=== PATIENT | female | born 1965 | race Caucasian/White ===

== ENCOUNTER 2016-08-19 06:10 | Day surgery (SDC) | payer BC ==
--- NOTE | ~2016-08-19 | EGD ---
EGD REPORT [facility] [address] [address] NAME: NOLVIA RUSSELL : [birth year] STATUS : [facility]#: [id number] AGE: 51 ADM/REG DATE : 08/19/16 MR#: [id number] REPORT SERV DATE: 08/19/16 DICTATED BY: BERNABE PRIETO DATE: 08/19/16 REPORT STATUS : Draft [facility]ANSCRIBED BY: [facility] DATE: 08/19/16 Endoscopy Center Patient Name: Nolvia Russell Date of : 1965 Attending MD: BERNABE PRIETO MD Procedure Date No Time: 08/19/2016 Procedure: Upper GI endoscopy Indications: Diarrhea, Nausea with vomiting Referring MD: MARISABEL CHAMBERS Medicines: as per anesthesia Complications: No immediate complications. Procedure: Pre-Anesthesia Assessment: - ASA Grade Assessment: II - A patient with mild systemic disease. After obtaining informed consent, the endoscope was passed under direct vision. Throughout the procedure, the patient's blood pressure, pulse, and oxygen saturations were monitored continuously. The GIF [id number] was introduced through the mouth, and advanced to the third part of duodenum. The upper GI endoscopy was accomplished without difficulty. The patient tolerated the procedure. Findings: The examined esophagus was normal. The entire examined stomach was normal. The cardia and gastric fundus were normal on retroflexion. The examined duodenum was normal. Biopsies were taken with a cold forceps for histology. Impression: - Normal esophagus. - Normal stomach. - Normal examined duodenum. Biopsied. Recommendation: - Await pathology results. Procedure Code(s): --- Professional --- 43020, Esophagogastroduodenoscopy, flexible, transoral; with biopsy, single or multiple Diagnosis Code(s): --- Professional --- R19.7, Diarrhea, unspecified R11.2, Nausea with vomiting, unspecified EGD REPORT [facility] [address] [place] [address] NAME: NOLVIA RUSSELL : [birth year] STATUS : [facility]#: [id number] AGE: 51 ADM/REG DATE : 08/19/16 MR#: [id number] REPORT SERV DATE: 08/19/16 DICTATED BY: BERNABE PRIETO. DATE: 08/19/16 REPORT STATUS : Draft TRANSCRIBED BY: [employer] DATE: 08/19/16 CPT copyright 2013 [employer]. All rights reserved. The codes documented in this report are preliminary and upon corporate sales trainer review may be revised to meet current compliance requirements. BERNABE PRIETO MD 08/19/2016 7:57 AM This report has been signed electronically. Number of Addenda: 0 Note Initiated On: 08/19/2016 7:15 AM Scope Withdrawal Time 0 hours 0 minutes 0 seconds [address] [facility] [place] [address]
--- NOTE | ~2016-08-19 | EGD ---
EGD REPORT [facility] [address] [address] NAME: NOLVIA RUSSELL : [birth year] STATUS : [facility]#: [id number] AGE: 51 ADM/REG DATE : 08/19/16 MR#: [id number] REPORT SERV DATE: 08/19/16 DICTATED BY: BERNABE PRIETO DATE: 08/19/16 REPORT STATUS : Draft TRANSCRIBED BY: [facility] DATE: 08/19/16 Endoscopy Center Patient Name: Nolvia Russell Date of : 1965 Attending MD: BERNABE PRIETO MD Procedure Date No Time: 08/19/2016 Procedure: Colonoscopy Indications: Abdominal pain in the left lower quadrant, Abdominal pain in the right lower quadrant, Clinically significant diarrhea of unexplained origin Referring MD: MARISABEL CHAMBERS Medicines: as per anesthesia Complications: No immediate complications. Procedure: Pre-Anesthesia Assessment: - ASA Grade Assessment: II - A patient with mild systemic disease. After I obtained informed consent, the scope was passed under direct vision. Throughout the procedure, the patient's blood pressure, pulse, and oxygen saturations were monitored continuously. The [facility] [id number] was introduced through the anus and advanced to the cecum, identified by appendiceal orifice and ileocecal valve. The colonoscopy was performed without difficulty. The patient tolerated the procedure. The quality of the bowel preparation was adequate to identify polyps. Findings: The perianal and digital rectal examinations were normal. A sessile polyp was found in the rectum. The polyp was 4 mm in size. The polyp was removed with a cold biopsy forceps. Resection and retrieval were complete. Four biopsies were obtained in the rectum and in the ascending colon with cold forceps for histology. Impression: - One 4 mm polyp in the rectum. Resected and retrieved. - Four biopsies were obtained in the rectum and in the ascending colon. Recommendation: - Await pathology results. - Repeat colonoscopy for surveillance based on pathology results. Procedure Code(s): --- Professional --- 56347, Colonoscopy, flexible, proximal to splenic flexure; with biopsy, single or multiple [address]GD REPORT [address] [place]. [address] NAME: NOLVIA RUSSELL : [birth year] STATUS : [facility] PAT#: [id number] AGE: 51 ADM/REG DATE : 08/19/16 MR#: [id number] REPORT SERV DATE: 08/19/16 DICTATED BY: BERNABE PRIETO DATE: 08/19/16 REPORT STATUS : Draft TRANSCRIBED BY: [employer] DATE: 08/19/16 Diagnosis Code(s): --- Professional --- K62.1, Rectal polyp R10.32, Left lower quadrant pain R10.31, Right lower quadrant pain R19.7, Diarrhea, unspecified CPT copyright 2013 [employer]. All rights reserved. The codes documented in this report are preliminary and upon death surveys coder review may be revised to meet current compliance requirements. BERNABE PRIETO MD 08/19/2016 8:18 AM This report has been signed electronically. Number of Addenda: 0 Note Initiated On: 08/19/2016 7:13 AM Scope Withdrawal Time 0 hours 9 minutes 44 seconds [address] [place] [address]
[~2016-08-19 06:10] MED LIST: 8 HOUR650 MG PO; AXID150 MG PO; ZOL100 PO
== END 2016-08-19 23:59 | disposition home or self-care (01) ==
LOC: DMU 06:10
PROVIDERS: Internal Medicine Gastroenterology
PROC: 0DBK8ZX Excision of Ascending Colon, Via Natural or Artificial Opening Endoscopic, Diagnostic (ICD-10-PCS; 2016-08-19)
PROC: 0DB98ZX Excision of Duodenum, Via Natural or Artificial Opening Endoscopic, Diagnostic (ICD-10-PCS; principal; 2016-08-19 08:00)
PROC: 0DBP8ZX Excision of Rectum, Via Natural or Artificial Opening Endoscopic, Diagnostic (ICD-10-PCS; 2016-08-19 08:00)
DX: D12.8 Benign neoplasm of rectum (principal); F17.210 Nicotine dependence, cigarettes, uncomplicated; Z88.0 Allergy status to penicillin; Z88.8 Allergy status to other drugs, medicaments and biological substances; Z90.49 Acquired absence of other specified parts of digestive tract; Z79.899 Other long term (current) drug therapy; Z98.890 Other specified postprocedural states
CPT/HCPCS: 88305